=== PATIENT | female | born 1955 | race Caucasian/White ===

== ENCOUNTER 2025-05-16 10:39 | Emergency (ER) | payer MEDICARE, SELFPAY ==
[2025-05-16 10:44] VITALS: BP 141/82; PULSE 85; TEMP 36.4; O2SAT 95; BMI 32.9
--- NOTE | 2025-05-16 10:54 | XR_ITS ---
The [address] [address] Patient Name: ROSE AZAR MRN: [id number] date: 1955 Sex: F Assigned Patient Location: ER Current Patient Location: ED.MAIN Accession/Order Number: [id number] Exam Date: 05/16/2025 11:00 Report Date: 05/16/2025 11:32 At the request of: KIANA GRANT MD Procedure: XR elbow LT min 3V LEFT ELBOW - ray views CLINICAL HISTORY: Fall. Left elbow pain. COMPARISON: None FINDINGS: Mild posterior soft tissue swelling. Degenerative changes without acute bony process. XR/XR elbow LT min 3V IMPRESSION: DEGENERATIVE CHANGES INVOLVING THE LEFT ELBOW WITHOUT ACUTE BONY PROCESS. Impression dictated by: Brent Salas Jr., D.O. 05/16/2025 11:32 AM Dictation Location: [place] [address] Electronically authenticated by: [id number] Y Date: 05/16/2025 11:32
--- NOTE | 2025-05-16 10:54 | CT_ITS ---
The [address] [address] Patient Name: ROSE AZAR MRN: [facility]:[id number] date: 1955 Sex: F Assigned Patient Location: ER Current Patient Location: ED.MAIN Accession/Order Number: [id number] Exam Date: 05/16/2025 11:08 Report Date: 05/16/2025 11:31 At the request of: KIANA GRANT MD Procedure: CT head/brain wo con CT BRAIN WITHOUT CONTRAST: CLINICAL HISTORY: Head injury with fall. Headache. COMPARISON: None TECHNIQUE: Contiguous axial unenhanced images were obtained through the brain. This CT exam was performed using one or more following dose reduction techniques: Automated exposure control, adjustment of the mA and/or kV according to patient size, or use of iterative reconstruction technique. FINDINGS: There is no evidence of midline shift, intra or extra-axial fluid collection, hemorrhage or CT evidence of stroke. Hypodensity involving the parietal lobes bilaterally. Posterior fossa appears unremarkable. Visualized intraorbital contents demonstrate no acute findings. Visualized paranasal sinuses are clear. The surrounding soft tissues are normal. CT/CT head/brain wo con IMPRESSION: HYPODENSITIES INVOLVING THE PARIETAL LOBES BILATERALLY. FINDINGS COULD REPRESENT PRES. THIS CAN BE FURTHER EVALUATED BY MRI. NO BLEED.. Impression dictated by: Brent Salas Jr., D.O. 05/16/2025 11:31 AM Dictation Location: [place] [address] Electronically authenticated by: [id number] Y Date: 05/16/2025 11:31
--- NOTE | 2025-05-16 10:54 | ED.GENADUL1 ---
HPI HPI - General Adult General Chief complaint: Fall Stated complaint: FALL; HEAD INJURY, WHOLE BODY HURTS Time Seen by Provider: 05/16/25 10:43 Source: patient Mode of arrival: Wheelchair History of Present Illness HPI narrative: 6-year-old female presents for an injury to her head. At 630 this morning she missed a step and she fell and hit the left side of her head and her left elbow. She states her body twisted and her whole body hurts but these were the only 2 areas of injury. It has been more than 10 years since her last tetanus shot and this is being updated today. No vomiting or neck pain or complaints of chest pain or shortness of breath. She has been able to ambulate. Related Data Home Medications ?Medication ?Instructions ?Recorded ?Confirmed atorvastatin 40 mg tablet 40 mg PO DAILY 05/16/25 05/16/25 dulaglutide 1.5 mg/0.5 mL 1.5 mg subcut QWEEK 05/16/25 05/16/25 [facility] metformin 500 mg tablet 500 mg PO BID 05/16/25 05/16/25 sertraline 100 mg tablet 100 mg PO DAILY 05/16/25 05/16/25 sertraline 25 mg tablet 25 mg PO DAILY 05/16/25 05/16/25 Allergies Allergy/AdvReac Type Severity Reaction Status Date / Time acetaminophen (From Allergy Severe Unknown Verified 05/16/25 10:49 Tylenol-Codeine #3) carisoprodol (From Soma) Allergy Severe Unknown Verified 05/16/25 10:49 codeine (From Allergy Severe Unknown Verified 05/16/25 10:49 Tylenol-Codeine #3) morphine Allergy Severe Vomiting Verified 05/16/25 10:49 Review of Systems ROS Narrative A ten point review of systems is negative except as noted above. PFSH PFSH Social History Little interest or pleasure in doing things: not at all Feeling down, depressed, or hopeless: not at all Exam Narrative Exam Narrative: Nurses note and vital signs reviewed and patient is not hypoxic. General:The patient appears well and in no apparent distress.Patient is resting comfortably on cart. Skin:Warm, dry, no pallor noted.There is no rash noted. Head:Normocephalic, atraumatic; no hematoma or laceration noted. C-spine nontender Eye: Normal conjunctiva, no drainage Ears, Nose, Mouth, and Throat: oral mucosa is moist. Nares patent. Cardiovascular:Regular Rate and Rhythm Respiratory:Patient is in no distress, no accessory muscle use, lungs are clear to auscultation, no wheezing, rales or rhonchi. She has some tenderness in the right posterior rib region without any crepitus bruise or abrasion. Back:non-tender, including cervical, thoracic, and lumbar spines GI: Soft and nontender Musculoskeletal: Abrasion present in the left elbow which has full range of motion Neurological:A&O, normal speech Psychiatric:Cooperative Constitutional Vital Signs, click to edit/add: Last Vital Signs Temp 97.5 F L 05/16/25 10:44 Pulse 85 05/16/25 10:44 Resp 18 05/16/25 10:44 BP 141/82 05/16/25 10:44 Pulse Ox 95 05/16/25 10:44 O2 Del Method Room Air 05/16/25 10:44 Course Vital Signs Vital signs: Vital Signs Temperature 97.5 F L 05/16/25 10:44 Pulse Rate 85 05/16/25 10:44 Respiratory Rate 18 05/16/25 10:44 Blood Pressure 141/82 05/16/25 10:44 Pulse Oximetry 95 05/16/25 10:44 Oxygen Delivery Method Room Air 05/16/25 10:44 Temperature 97.5 F L 05/16/25 10:44 Pulse Rate 85 05/16/25 10:44 Respiratory Rate 18 05/16/25 10:44 Blood Pressure 141/82 05/16/25 10:44 Pulse Oximetry 95 05/16/25 10:44 Oxygen Delivery Method Room Air 05/16/25 10:44 Medical Decision Making MDM Narrative Medical decision making narrative: X-rays of chest and elbow are negative. CT brain shows no acute findings. The CT findings of possible PRES were discussed with the patient and she will follow-up with her PCP tetanus status was updated. Treatment diagnosis and follow-up were discussed with the patient. Differential Diagnosis Differential Diagnosis: Intracranial hemorrhage, head contusion, abrasion, fracture Imaging Data CT scan - head: Radiologist's impression: ITS Impressions Elbow X-Ray 05/16/25 10:54 IMPRESSION: DEGENERATIVE CHANGES INVOLVING THE LEFT ELBOW WITHOUT ACUTE BONY PROCESS. Impression dictated by: Brent Salas Jr., D.OLien 05/16/2025 11:32 AM Dictation Location: [facility] Electronically authenticated by: [id number] Y Date: 05/16/2025 11:[address] 05/16/25 10:54 IMPRESSION: HYPODENSITIES INVOLVING THE PARIETAL LOBES BILATERALLY. FINDINGS COULD REPRESENT PRES. THIS CAN BE FURTHER EVALUATED BY MRI. NO BLEED.. Impression dictated by: Brent Salas Jr., D.O. 05/16/2025 11:31 AM Dictation Location: [facility] Electronically authenticated by: [id number] Y Date: 05/16/2025 11:31 Chest X-Ray 05/16/25 10:59 IMPRESSION: NO ACUTE PROCESS. Impression dictated by: Brent Salas Jr., D.O. 05/16/2025 11:31 AM Dictation Location: [facility] Electronically authenticated by: [id number] Y Date: 05/16/2025 11:31 Discharge Plan Discharge Chief Complaint: Fall Clinical Impression: Fall, Abrasion of left elbow, Head injury Patient Disposition: Home, Self-Care Time of Disposition Decision: 11:51 Condition: Good Mode of Transportation: Private Vehicle Prescriptions / Home Meds: No Action atorvastatin 40 mg tablet 40 mg PO DAILY Trulicity 1.5 mg/0.5 mL pen injector 1.5 mg SUBCUT QWEEK metformin 500 mg tablet 500 mg PO BID sertraline 100 mg tablet 100 mg PO DAILY sertraline 25 mg tablet 25 mg PO DAILY Print Language: Polish Instructions: Head Injury (ED), Abrasion (ED), Fall Prevention (ED) Referrals: ZAK GARZA [Primary Care Provider, Internal Medicine] - 1 week
--- NOTE | 2025-05-16 10:59 | XR_ITS ---
The [address] [address] Patient Name: ROSE AZAR MRN: [id number] date: 1955 Sex: F Assigned Patient Location: ER Current Patient Location: ED.MAIN Accession/Order Number: [id number] Exam Date: 05/16/2025 11:00 Report Date: 05/16/2025 11:31 At the request of: KIANA GRANT MD Procedure: XR chest 1V Single view chest: CLINICAL HISTORY: fall COMPARISON: None FINDINGS: The heart is normal in size. The lungs are clear. The pulmonary vasculature is normal. Mediastinum and hilar regions are unremarkable. No pleural effusions are seen. Visualized bones are intact. XR/XR chest 1V IMPRESSION: NO ACUTE PROCESS. Impression dictated by: Brent Salas Jr., D.OLien 05/16/2025 11:31 AM Dictation Location: [place] [address] Electronically authenticated by: [id number] Y Date: 05/16/2025 11:31
--- OUTSIDE RECORDS SUMMARY | 2025-05-16 11:16 | XMS_ITS | Encounter Summary ---
Author Organization [facility] [employer] Sys [facility] Address [facility] [id number] [address] [place] [address] Care Team Providers Care Radio Station Manager Name Role Phone Sarina Cheney INTERNET WEBMASTER-PRODUCE ASSOCIATE Primary Care Provider + Encounter Details Date Type Department Care Team (Late st Contact Info) Description 06/02/2023 [facility] [address] [place] [address] Sarina Cheney, INTERNET WEBMASTER-PRODUCE ASSOCIATE [address] [place] [address] Social History Tobacco Use Types Packs/Day Years Used Date Smoking Tobacco: Never Smokeless Tobacco: Never Alcohol Use Standard Drinks/Week Comments Not Currently 0 (1 standard drink = 0.6 oz pur e alcohol) rare Overall Financial Resource Strain (CARDIA) Answe r Date Recorded How hard is it for you to pa y for the very basics like food, housing, medical care, and heating? Not hard at all 09/19/2022 PHQ-2 Answer Date Recorded Total Score 0 05/18/2023 PRAPARE - Transportation Answer Date Re corded In the past 12 months, has l ack of transportation kept you from medical appointments or from getting medications? No 09/01 In the past 12 months, has l ack of transportation kept you from meetings, work, or from getting things needed for daily living? No 09/19/2022 Housing Instability Answer Date Recorde d Are you worried or concerned that in the next two months you may not have stable housing that you own, rent or stay in as a part of a household? No 09/19/2022 Childcare Answer Date Recorded Childcare Unknown 01/08/2019 Employment Answer Date Recorded Employment Unknown 01/08/2019 Purpose - Life Answer Date Recorded Purpose and direction in life Unknown Comments No Sex and Gender Information Value Date Recorded Sex Assigned at Not on file Legal Sex Female 9:25 PM EDT Gender Identity Not on file Sexual Orientation Not on file documented as of this encounter Plan of Treatment Not on file documented as of this encounter Procedures Procedure Name Priority Date/Time Associated Diagnosis Comments DIET MESSAGE Routine 05/30/2023 2:03 PM EDT documented in this encounter Results * Diet message (05/30/2023 2:03 PM EDT) us Sarina LIZARRAGA NOURISHMENT ORDERABLES F inal Result Performing Organization Address City/State/[facility] Co de Phone Number MANUALLY TRANSCRIBED RESULTS documented in this encounter Visit Diagnoses Not on filedocumented in this encounter Additional Health Concerns Assessment Noted Time PHQ-9 Depression Total Score: 0 05/18/20 10:28 AM EDT documented as of this encounter Care Teams Radio Station Manager Relationship Specialty Start Date End Date Sarina Cheney APRN-CNP [address] [facility] [place] [address] PCP - General Internal Medicine 05/18/23 documented as of this encounter
--- OUTSIDE RECORDS SUMMARY | 2025-05-16 11:16 | XMS_ITS | Encounter Summary ---
Author Organization [facility] Address [facility] [place]-[id number] [address] [place] [address] Care Team Providers Care Oil Expeller Operator Name Role Phone Sarina Cheney DIRECTOR OF VIDEO ANALYTICS-HYDROBLASTER Primary Care Provider + Encounter Details Date Type Department Care Team (Late st Contact Info) Description 12/21/2022 Telephone [facility] Internal Medicine - Family Medicine [address] [place] [phone] Sarina Cheney, DIRECTOR OF VIDEO ANALYTICS-HYDROBLASTER [address] [facility] [place] [address] Social History Tobacco Use Types Packs/Day Years [...] PHQ-2 Answer Date Recorded Total Score 0 12/16/2022 PRAPARE - Transportation Answer Date Re corded [...] on file documented as of this encounter Miscellaneous Notes * Telephone Encounter - Yumiko Peter - 12/21/2022 10:43 AM EDT Patient called stated you said to call back if not feeling better for an antibiotic and she isnt. Ears are starting to hurt along with headache and lump feeling in her throat. Would like something called into her pharmacy. * Telephone Encounter - ELHAM Mensah - 12/21/2022 10:43 AM EDT This does not necessarily mean she needs antibiotic - does she have fever? Trouble breathing? Intense sinus pressure in her cheeks or head? None of the symptoms she listed are things requiring antibiotic therapy unless she has developed ear infection which I would need to check out in office because they are more rare in adults. * Telephone Encounter - Yumiko Peter - 12/21/2022 10:43 AM EDT Patient aware and did not want to set up an appointment at this time documented in this encounter Plan of Treatment Not on file documented as of this encounter Visit Diagnoses Not on filedocumented in this encounter Additional Health Concerns Assessment Noted Time PHQ-9 Depression Total Score: 0 12/17/19 23 9:10 AM EDT documented as of this encounter Care Teams Oil Expeller Operator Relationship Specialty Start Date End Date Sarina Cheney APRN-CNP [address] [place] [address] PCP - General Internal Medicine 05/18/23 documented as of this encounter
--- OUTSIDE RECORDS SUMMARY | 2025-05-16 11:16 | XMS_ITS | Encounter Summary ---
Author Organization [employer] Sys [facility] Address [id number] [address] [place] [address] Care Team Providers Care Rat Breeder Name Role Phone Sarina Cheney EXECUTIVE DIRECTOR-VAULT CUSTODIAN Primary Care Provider + Encounter Details Date Type Department Care Team (Late st Contact Info) Description 02/05/2024 [facility] - Family Medicine [address] [place] [phone] Yuan Shoemaker, [address] [place] [address] Social History Tobacco Use Types Packs/Day Years [...] 09/19/2022 PHQ-2 Answer Date Recorded Total Score 8 12/20/2023 PRAPARE - Transportation Answer Date Re corded [...] Employment Answer Date Recorded Employment Unknown 01/08/2019 Hunger Screening Answer Date Recorded Within the past 12 months we worried whether our food would run out before we got money to buy more. Sometimes True 024 Within the past 12 months th e food we bought just didn't last and we didn't have money to get more. Sometimes True 12/20/2023 Purpose - Life Answer Date Recorded Purpose [...] Assessment Noted Time PHQ-9 Depression Total Score: 8 12/20/19 24 10:41 AM EDT documented as of this encounter Care Teams Rat Breeder Relationship Specialty Start Date End Date Sarina Cheney, EXECUTIVE DIRECTOR-VAULT CUSTODIAN [address] [place] [address] PCP - General Internal Medicine 05/18/23 documented as of this encounter
--- OUTSIDE RECORDS SUMMARY | 2025-05-16 11:16 | XMS_ITS | Encounter Summary ---
Author Organization [facility] [employer] [facility] Address [facility] [place]-[id number] [address] [place] [address] Care Team Providers Care Roll Press Operator Name Role Phone Sarina Cheney FILLER FEEDER-TANDEM MILL OPERATOR Primary Care Provider + Encounter Details Date Type Department Care Team (Late st Contact Info) Description 03/30/2023 Orders Only [facility] Internal Medicine - Family Medicine [address] [place] [address] Sarina Cheney, FILLER FEEDER-TANDEM MILL OPERATOR [address] [place] [address] Social History Tobacco Use Types Packs/Day Years [...] 09/19/2022 PHQ-2 Answer Date Recorded Total Score 18 03/09/2023 PRAPARE - Transportation Answer Date Re corded [...] Assessment Noted Time PHQ-9 Depression Total Score: 18 023 9:24 AM EDT documented as of this encounter Care Teams Roll Press Operator Relationship Specialty Start Date End Date Sarina Cheney APRN-TANDEM MILL OPERATOR [address] [place] [address] PCP - General Internal Medicine 05/18/23 documented as of this encounter
--- OUTSIDE RECORDS SUMMARY | 2025-05-16 11:16 | XMS_ITS | Encounter Summary ---
Author Organization [employer] [facility] [employer] Address [facility] [place]-[id number] [address] [place] [address] Care Team Providers Care Neurology Nurse Name Role Phone Sarina Cheney SPECIAL EDUCATION INSTRUCTOR-INHALATION THERAPY AIDE Primary Care Provider + Reason for Visit * Reason Comments Med Refill Encounter Details Date Type Department Care Team (Late st Contact Info) Description 06/08/2022 Refill [facility] Internal Medicine - Family Medicine [address] [place] [address] Yuan Shoemaker, [address] [place] [id number] Type 2 diabetes mellitus without complication, without long-term current use of insulin ([facility]) (Primary Dx) Social History Tobacco Use Types Packs/Day Years Used Date Smoking Tobacco: Never Smokeless Tobacco: Never Alcohol Use Standard Drinks/Week Comments Not Currently 0 (1 standard drink = 0.6 oz pur e alcohol) rare Childcare Answer Date Recorded Childcare Unknown 01/08/2019 [...] documented as of this encounter Visit Diagnoses Diagnosis Type 2 diabetes mellitus without complication, without long-term current use of insulin ([facility])- Primary documented in this encounter Care Teams Neurology Nurse Relationship Specialty Start Date End Date Sarina Cheney APRN-INHALATION THERAPY AIDE [address] [place] [address] PCP - General Internal Medicine 05/18/23 documented as of this encounter
--- OUTSIDE RECORDS SUMMARY | 2025-05-16 11:17 | XMS_ITS | Encounter Summary ---
Author Organization [facility] Address [address] [place] [address] Care Team Providers Care Sign Language Interpreter Name Role Phone Yuan Shoemaker MD Primary Care Provider [phone] Encounter Details Date Type Department Care Team (Late st Contact Info) Description 02/14/2024 Abstract [facility] [address] [place] [phone] Goyo Jones, DPM [address] [place], [place] [phone] Social History Tobacco Use Types Packs/Day Years Used Date Smoking Tobacco: Never Smokeless Tobacco: Never Alcohol Use Standard Drinks/Week Comments Not Currently 0 (1 standard drink = 0.6 oz pur e alcohol) Comments Unknown Sex and Gender Information Value Date Recorded Sex Assigned at Not on file Legal Sex Female 8:14 PM EDT Gender Identity Not on file Sexual Orientation Not on file documented as of this encounter Plan of Treatment Not on file documented as of this encounter Visit Diagnoses Not on filedocumented in this encounter Care Teams Sign Language Interpreter Relationship Specialty Start Date End Date Yuan Shoemaker MD PCP - General Internal Medicine 01/29/24 documented as of this encounter
--- OUTSIDE RECORDS SUMMARY | 2025-05-16 11:17 | XMS_ITS | Clinical Summary ---
Author Organization [facility] Address [address] [place] [address] Care Team Providers Care Car Repossessor Name Role Phone Yuan Shoemaker MD Primary Care Provider [phone] Allergies Active Allergy Reactions Criticality Noted Date Comments Carisoprodol Shortness of breath High 06/18/2018 Other Reaction(s): Unknown Codeine Medium 10/31/2020 Other Reaction(s): Confusion Morphine Nausea Only 11/25/2020 Medications metFORMIN, OSM, (Fortamet) 500 MG 24 hr tablet Take 500 mg by mouth in the morning and 500 mg in the evening. Take with meals. Do not crush, chew, or split.. Active atorvastatin (Lipitor) 10 MG tablet Take 10 mg by mouth Daily Active albuterol HFA 90 mcg/act inhaler Inhale 2 puffs every 6 (six) hours if needed 3 Active alendronate (Fosamax) 35 MG tablet Take 35 mg by mouth once a week 4 Active aspirin 81 MG EC tablet Take 81 mg by mouth in the morning. 4 Active Trulicity 1.5 MG/0.5ML solution pen-injector Inject under the skin 4 Active Glucosamine HCl 1500 MG tablet 1 tablet Orally Once a day Active ibuprofen 600 MG tablet Take 600 mg by mouth every 6 (six) hours if needed 4 Active LORazepam (Ativan) 0.5 MG tablet Take 0.5 mg by mouth in the morning and 0.5 mg in the evening. Active nystatin (Mycostatin) cream Apply 1 Application topically in the morning and 1 Application in the evening. Active sertraline (Zoloft) 100 MG tablet Take 1 tablet by mouth in the morning. Active clobetasol propionate (Temovate) 0.05 % emollient cream Apply topically 2 (two) times a day Active fluticasone (Flonase) 50 MCG/ACT nasal spray Administer 1 spray into each nostril Daily Shake gently. Before first use, prime pump. After use, clean tip and replace cap. Active Spacer/Aero-Hol ding Chambers (AeroChamber MV) inhaler by Other route Use as instructed Active loratadine (Claritin) 10 MG tablet Take by mouth Active Bioflavonoid Products (BIOFLEX PO) Take by mouth Act asif Active Problems No known active problems Encounters Date Type Department Care Team Description 02/13/2025 10:15 AM EDT Office Visit [facility] [address] [place] [address] Jamel Chaudhry, CARRIE De Quervain's tenosynovitis (Primary Dx); Left wrist pain 02/13/2025 Bamboo flowsheet [facility] [address] [place] [address] Jamel Chaudhry, EXPORT CLERK 02/13/2025 Travel from Last 3 Months Immunizations Immunization Administration Dates Next Due Influenza Whole 05/18/2009 Influenza, High-dose Seasona l, Quadrivalent, Preservative Free 05/03/2023,10/06/2022,11/08/2021 Influenza, injectable, MDCK, quadrivalent 2018 Influenza, injectable, quadrivalent 04/27/2020 Influenza, seasonal, injecta ble, preservative free 04/03/2015 Pneumococcal Conjugate PCV 13 04/27/2020, 015 Pneumococcal Polysaccharide PPSV23 05/05/2022 Tdap 04/03/2015 Tetanus toxoid, adsorbed 11/27/2009 Zoster, Recombinant 10/06/2022,05/05/2022 Family History Medical History Relation Name Comments Cancer Brother Coronary artery disease Brother Graves' disease Brother Heart disease Brother Stroke Brother COPD Father Cancer Father Hypertension Father Cancer Mother Coronary artery disease Mother Heart disease Mother Relation Name Status Comments Brother Father Mother Social History Tobacco Use Types Packs/Day Years Used Date Smoking Tobacco: Never Smokeless Tobacco: Never Tobacco Cessation:Counseling Given: No Alcohol Use Standard Drinks/Week Comments Not Currently 0 (1 standard drink = 0.6 oz pur e alcohol) Comments Unknown Sex and Gender Information Value Date Recorded Sex Assigned at Not on file Legal Sex Female 8:14 PM EDT Gender Identity Not on file Sexual Orientation Not on file Last Filed Vital Signs Vital Sign Reading Time Taken Comments Blood Pressure - - Pulse - - Temperature - - Respiratory Rate - - Oxygen Saturation - - Inhaled Oxygen Concentration - - Weight 81.6 kg (180 lb) 01/27/2025 1:03 PM EDT Height 157.5 cm (5' 2 ) 01/27/2025 1:03 PM EDT Body Mass Index 32.92 01/27/2025 1:03 PM EDT Plan of Treatment Health Maintenance Due Date Last Done Comments CT Colonography 1955 Colonoscopy 1955 Colorectal Cancer Screening 1955 FIT-DNA 1955 FIT 1955 FOBT 1955 Sigmoidoscopy 1955 Mammogram 10/21/2023 10/20/2022, 09/28, 01/22/2020 Influenza Vaccine (#1) 2025 , 10/06/2022, 11/08/2021, Additional history exists Pneumococcal Vaccine: 65+ Years Completed 05/05/2022, 04/27/2020, 04/03/2015 Insurance MEDICARE ADVANTAGE Care Teams Car Repossessor Relationship Specialty Start Date End Date Yuan Shoemaker MD PCP - General Internal Medicine 01/29/24
--- OUTSIDE RECORDS SUMMARY | 2025-05-16 11:17 | XMS_ITS | Encounter Summary ---
Author Organization [facility] Address [address] [place] [address] Care Team Providers Care Partner Manager Name Role Phone Yuan Shoemaker MD Primary Care Provider [phone] Encounter Details Date Type Department Care Team (Late st Contact Info) Description 02/20/2024 Abstract [facility] [address] [place] [phone] Goyo Jones, DPM [address] [place], [place] [id number] Social History Tobacco Use Types Packs/Day Years [...] on filedocumented in this encounter Care Teams Partner Manager Relationship Specialty Start Date End Date Yuan Shoemaker MD PCP - General Internal Medicine 01/29/24 documented as of this encounter
--- OUTSIDE RECORDS SUMMARY | 2025-05-16 11:17 | XMS_ITS | Clinical Summary ---
Author Organization [employer] Address [facility] [id number] [address] [place] [address] Care Team Providers Care Screen Maker Name Role Phone Sarina Cheney SCALE TANK OPERATOR-REHAB DIRECTOR Primary Care Provider + Allergies Active Allergy Reactions Criticality Noted Date Comments Codeine Confusion Medium 10/31/2020 Famotidine Dizziness 12/26/2024 Morphine (Pf) Nausea 11/25/2020 Carisoprodol Shortness Of Breath High 06/18/2018 Medications rutin/hesp/biof lav/C/ (BIOFLEX ORAL) Take by mouth. Active glucosamine HCl 1,500 mg tablet Acti ve loratadine (CLARITIN) 10 mg tablet Take 1 tablet (10 mg total) by mouth daily as needed for allergies. 30 tablet 2 3 Active fluticasone propionate (FLONASE) 50 mcg/actuation nasal spray Administer 1 spray into each nostril in the morning. 9.9 mL 1 3 Active albuterol (PROVENTIL HFA;VENTOLIN HFA) 90 mcg/actuation inhalerIndicati ons:Environment al allergies,React asif airways dysfunction syndrome (CMS-HCC) Inhale 2 puffs every 6 (six) hours as needed for wheezing. 18 g 1 3 Active inhalational spacing device (AEROCHAMBER MV) spacer 1 each by miscellaneous route every 6 (six) hours as needed (Use with albuterol PRN). 1 each 3 Active ibuprofen (MOTRIN) 600 mg tablet Take 1 tablet (600 mg total) by mouth every 6 (six) hours as needed for pain. 30 tablet 4 Active Additional Information Patient not taking.Reported on 12/26/2024 nystatin (MYCOSTATIN) cream Apply 1 Application topically in the morning and 1 Application before bedtime. 30 g 1 4 Active aspirin 81 mg TAKE 1 TABLET BY MOUTH EVERY MORNING 90 tablet 1 5 Active diclofenac sodium (VOLTAREN) 1 % gel Apply 2 g topically in the morning and 2 g at noon and 2 g in the evening and 2 g before bedtime. 100 g 5 Active acetaminophen (TYLENOL EXTRA STRENGTH) 500 mg tablet Take by mouth every 4 (four) hours. prn Active nunqeskx-onuk-P U-kmjnacc-ffev (ONE DAILY WOMEN'S) 18 mg iron-400 mcg-450 mg Ca tablet take 1 tab po qd Act asif triamcinolone (KENALOG) 0.1 % cream Apply 1 Application topically in the morning and 1 Application before bedtime. 30 g 5 Active metFORMIN (GLUCOPHAGE) 500 mg tablet TAKE 1 TABLET BY MOUTH EVERY MORNING AND TAKE ONE TABLET BY MOUTH EVERY EVENING WITH A MEAL 180 tablet 1 5 Active TRULICITY 1.5 mg/0.5 mL pen injector 5 Active ofloxacin (OCUFLOX) 0.3 % ophthalmic solution 5 Active prednisoLONE acetate (PRED FORTE) 1 % ophthalmic suspension 5 Active sertraline (ZOLOFT) 100 mg tablet Take 1 tablet (100 mg total) by mouth in the morning. 90 tablet 1 5 Active sertraline (ZOLOFT) 25 mg tablet Take 1 tablet (25 mg total) by mouth in the morning. Add 25mg. Total daily dose is 125mg. 90 tablet 1 5 Active atorvastatin (LIPITOR) 40 mg tablet TAKE 1 TABLET BY MOUTH DAILY 90 tablet 1 5 Active alendronate (FOSAMAX) 35 mg tablet TAKE 1 TABLET BY MOUTH ONCE WEEKLY ON AN EMPTY STOMACH BEFORE BREAKFAST. REMAIN UPRIGHT FOR 30 MINUTES AND TAKE WITH 8 OUNCES OF WATER 12 tablet 2 5 Active Active Problems Problem Noted Date Diagnosed Date Combined forms of age-related cataract of right eye 02/16/2025 Moderate episode of recurrent major depressive d isorder 10/24/2024 Diabetic polyneuropathy asso ciated with type 2 diabetes mellitus 10/24/2024 History of renal calculi 04/11/2022 Hyperlipidemia 04/11/2022 Type 2 diabetes mellitus 04/11/2022 Contracture, left ankle 04/11/2022 Polyp of ascending colon 11/25/2020 Diverticulosis large intesti ne w/o perforation or abscess w/o bleeding 11/25/2020 Diverticulosis of large intestine 11/25/2020 Colon cancer screening 10/31/2020 Sleep apnea 07/31/2010 Resolved Problems Problem Noted Date Diagnosed Date Resolved Date Vitreous hemorrhage of left eye 06/28/2024 10/24/2024 Encounters Date Type Department Care Team Description 03/27/2025 Refill [facility] [address] [place] [address] Billy Rai DO 03/23/2025 Refill [facility] [address] [place] [address] Sarina Cheney, SCALE TANK OPERATOR-REHAB DIRECTOR 03/11/2025 Telephone [facility] [address] [place] [address] Marita Rankin CMA Diabetes Mellitus 03/03/2025 Orders Only [facility] [address] [place] [address] Ref Prov, Not In System 02/28/2025 Orders Only [facility] [address] [place] [address] Sarina Cheney, SCALE TANK OPERATOR-REHAB DIRECTOR 02/25/2025 Refill [facility] [address] [place] [address] Jahaira Perez CMA 02/17/2025 10:08 AM EDT Anesthesia Event [facility] [address] [place] [address] Atif Villanueva MD Reynolds, Vern D, DO 02/17/2025 9:30 AM EDT - 02/17/2025 10:15 AM EDT Surgery [facility] [address] [place] [address] Shay Salas DO EXTRACTION CATARACT INTRAOCULAR LENS [30211 (CPT )] 02/17/2025 7:22 AM EDT - 02/17/2025 10:59 AM EDT Hospital Encounter [facility] [address] [place] [address] Shay Salas DO Discharge Disposition: Home 02/17/2025 Travel from Last 3 Months Immunizations Immunization Administration Dates Next Due Influenza (IM) Preservative Free 04/03/2015 Influenza Whole 05/18/2009 Influenza, High-dose, Quadrivalent 05/03,10/06/2022,11/08/2021,04/27 Influenza, Injectable, MDCK, Quadrivalent 06/03/2019 Influenza, Injectable, Quadrivalent 04/27/2020 Pneumococcal Conjugate 13-Valent 04/27/2020,10/2014 Pneumococcal Polysaccharide 05/05/2022 Tdap 04/03/2015 Tetanus 11/27/2009 Zoster Vaccine Recombinant 10/06/2022,05/05/2022 Family History Medical History Relation Name Comments Cancer Brother 1 Bladder Coronary artery disease Brother 1 Cancer Brother 2 Prostate Coronary artery disease Brother 2 Graves' disease Brother 2 Heart disease Brother 3 Stroke Brother 3 COPD Father Cancer Father voice box Heart disease Father Hypertension Father Cancer Mother lung Coronary artery disease Mother Heart disease Mother Angina Sister Breast cancer Neg Hx Relation Name Status Comments Brother 1 Brother 2 Brother 3 Alive Father Mother Sister Social History Tobacco Use Types Packs/Day Years Used Date Smoking Tobacco: Never Smokeless Tobacco: Never Tobacco Cessation:Counseling Given: Not Answered Alcohol Use Standard Drinks/Week Comments Not Currently 0 (1 standard drink = 0.6 oz pur e alcohol) rare Overall Financial Resource Strain (CARDIA) Answe r Date Recorded How hard is it for you to pa y for the very basics like food, housing, medical care, and heating? Not hard at all 09/19/2022 PHQ-2 Answer Date Recorded Total Score 7 12/26/2024 PRAPARE - Transportation Answer Date Re corded [...] got money to buy more. Sometimes True 025 Within the past 12 months th e food we bought just didn't last and we didn't have money to get more. Sometimes True 12/26/2024 Purpose - Life Answer Date Recorded Purpose and direction in life Unknown Comments No Sex and Gender Information Value Date Recorded Sex Assigned at Not on file Legal Sex Female 9:25 PM EDT Gender Identity Not on file Sexual Orientation Not on file Last Filed Vital Signs Vital Sign Reading Time Taken Comments Blood Pressure 131/81 02/17/2025 10:53 AM EDT Pulse 71 02/17/2025 10:53 AM EDT Temperature 36.2 C (97.1 F) 02/17/2025 10:53 AM EDT Respiratory Rate 18 02/17/2025 10:53 AM EDT Oxygen Saturation 99% 02/17/2025 10:53 AM EDT Inhaled Oxygen Concentration - - Weight 81.6 kg (180 lb) 02/17/2025 7:40 AM EDT Height 157.5 cm (5' 2 ) 02/17/2025 7:40 AM EDT Body Mass Index 32.92 02/17/2025 7:40 AM EDT Plan of Treatment Health Maintenance Due Date Last Done Comments Colonoscopy 1954 Adult BMI Follow Up Plan 1972 Mammogram 10/21/2023 10/20/2022, 09/28, 01/22/2020 Diabetic Foot Exam 01/28/2025 01/29/2024, 0 08/31/2023, 02/16/2023, Additional history exists Influenza Vaccine 03/31/2025 05/03/2023, , 11/08/2021, Additional history exists DTaP,Tdap and Td Vaccines (2 - Td or Tdap) 04/03/2025 04/03/2015 Diabetic Ophthalmology Exam 12/07/2025 05, 06/19/2024, 08/12/2023 Depression Screening 12/26/2025 12/26/2024 Fall Risk Screening 12/26/2025 12/26/2024 Medicare Annual Wellness Visit 12/26/2025 0 12/26/2024, 02/23/2024, 02/16/2023 Adult BMI Screening 02/17/2026 02/17/2025 Tobacco Screening 02/17/2026 02/17/2025 Statin Use: Diabetic 03/26/2026 03/26/2025 COVID-19 Vaccine Discontinued 07/28/2021, 07/2020, 10/01/2020 Zoster (Shingles) Vaccine Completed 10/06/2022, 12/2021 Medical Devices Implanted Type Area Industrial Engineering Intern Device Identifier Shelf Expiration Date Model / Serial / Lot Clareon Uv Iol +19.5d Implanted:Qty: 1 on 02/17/2025 by Shay Salas DO at [facility] Other Implant [employer] 06/11/2027 [id number] / [id number] / N/A Procedures Procedure Name Priority Date/Time Associated Diagnosis Comments ND REMV CATARACT EXTRACAP,INSERT LENS 02/17/2025 10:07 AM EDT cataract right eye DIABETES EYE EXAM Routine 12/07/2024 11:55 AM EDT MAMM SCREENING BILATERAL W CAD Routine 10/20/2022 2:20 PM EDT Encounter for screening mammogram for malignant neoplasm of breast from Last 3 Months or Most Recently Relevant to Health Maintenance Results * DIABETES EYE EXAM (12/07/2024 11:55 AM EDT) us Not In System Ref Prov HEALTH MAINTENANCE Final Result MANUALLY TRANSCRIBED RESULTS * Mammography screening bilateral with CAD (10/20/2022 2:20 PM EDT) Anatomical Region Laterality Modality Breast Bilateral Mammography 10/24/2022 9:52 AM EDT Narrative 10/24/2022 9:56 AM EDT MAMM SCREENING BILATERAL W CAD WITH TOMOSYNTHESIS HISTORY: Screening. Encounter for screening mammogram for malignant neoplasm of breast COMPARISON: 10/13/2021 FINDINGS: There are scattered areas of fibroglandular density. Negative for malignancy. Computer-aided detection was used in the interpretation of this examination. IMPRESSION: BIRADS 1 - Negative. Normal interval follow-up in 12 months. OVERALL ASSESSMENT- NEGATIVE. A letter of notification will be sent to the patient regarding the results. Finalized by Andrea Carl MD on 10/24/2022 9:56 AM 1 b MAMM 1 YR Procedure Note Andrea Carl MD - 10/24/2022 MAMM SCREENING BILATERAL W CAD WITH TOMOSYNTHESIS HISTORY: Screening. Encounter for screening mammogram for malignantneoplasm of breast COMPARISON: 10/13/2021 FINDINGS: There are scattered areas of fibroglandular density. Negativefor malignancy. Computer-aided detection was used in the interpretation of thisexamination. IMPRESSION: BIRADS 1 - Negative. Normal interval follow-up in 12 months. OVERALL ASSESSMENT- NEGATIVE. A letter of notification will be sent to the patient regarding theresults. Finalized by Andrea Carl MD on 10/24/2022 9:56 AM 1 b MAMM 1 YR us Yuan Shoemaker DO IMG MAMMOGRAPHY ORDERABLES Final Result from Last 3 Months or Most Recently Relevant to Health Maintenance Insurance [employer] WORKERS COMPENSATION [employer] Care Teams Screen Maker Relationship Specialty Start Date End Date Sarina Cheney APRN-REHAB DIRECTOR [address] [place] [address] PCP - General Internal Medicine 05/18/23
--- OUTSIDE RECORDS SUMMARY | 2025-05-16 11:17 | XMS_ITS | Encounter Summary ---
Author Organization [facility] [employer] Address [id number] [address] [place] [address] Care Team Providers Care Ui Developer With Angular Js Name Role Phone Sarina Cheney RAIL SWITCHMAN-ON AIR TALENT Primary Care Provider + Encounter Details Date Type Department Care Team (Late st Contact Info) Description 03/03/2025 Orders Only [facility] Internal [facility] - Family Medicine [address] [place] [address] Ref Prov, [place] [address] Social History Tobacco Use Types Packs/Day Years [...] Procedure Name Priority Date/Time Associated Diagnosis Comments DIABETES EYE EXAM Routine 12/07/2024 11:55 AM EDT documented in this encounter Results * HM DIABETES EYE EXAM (12/07/2024 11:55 AM EDT) us Not In System Ref Prov HEALTH MAINTENANCE Final Result MANUALLY TRANSCRIBED RESULTS documented in this encounter Visit Diagnoses Not on filedocumented in this encounter Additional Health Concerns Assessment Noted Time PHQ-9 Depression Total Score: 7 12/27/19 25 10:07 AM EDT documented as of this encounter Care Teams Ui Developer With Angular Js Relationship Specialty Start Date End Date Sarina Cheney APRN-ON AIR TALENT [address] [place] [address] PCP - General Internal Medicine 05/18/23 documented as of this encounter
--- OUTSIDE RECORDS SUMMARY | 2025-05-16 11:18 | XMS_ITS | Encounter Summary ---
Author Organization [facility] [employer] Address [facility] [id number] [address] [place] [address] Care Team Providers Care Business Office Specialist Name Role Phone Sarina Cheney WASTE HAND-CAST IRON DRAIN PIPE LAYER Primary Care Provider + Encounter Details Date Type Department Care Team (Late st Contact Info) Description 08/04/2023 [facility] [address] [place] [phone] External, Scanning Provider Social History Tobacco Use Types Packs/Day Years [...] before we got money to buy more. Never True 06/09/2023 Within the past 12 months th e food we bought just didn't last and we didn't have money to get more. Never True 06/09/2023 Purpose - Life Answer Date Recorded Purpose [...] documented as of this encounter Care Teams Business Office Specialist Relationship Specialty Start Date End Date Sarina Cheney, WASTE HAND-CAST IRON DRAIN PIPE LAYER [address] [place], [place] [address] [place] [address] PCP - General Internal Medicine 05/18/23 documented as of this encounter
--- OUTSIDE RECORDS SUMMARY | 2025-05-16 11:18 | XMS_ITS | Encounter Summary ---
Author Organization [facility] [employer] Address [id number] [address] [place] [address] Care Team Providers Care Early Education Teacher Name Role Phone Sarina Cheney MANAGER VOICE-PATENT DRAFTER Primary Care Provider + Encounter Details Date Type Department Care Team (Late st Contact Info) Description 08/14/2023 [facility] [address] [place] [address] External, Scanning Provider Social History Tobacco Use [...] documented as of this encounter Care Teams Early Education Teacher Relationship Specialty Start Date End Date Sarina Cheney, MANAGER VOICE-PATENT DRAFTER [address] [place], [place] [address] [place] [address] PCP - General Internal Medicine 05/18/23 documented as of this encounter
--- OUTSIDE RECORDS SUMMARY | 2025-05-16 11:18 | XMS_ITS | Encounter Summary ---
Author Organization [employer] Address [id number] [address] [place] [address] Care Team Providers Care Receiving Teller Name Role Phone Sarina Cheney ROOM MAID-UNIVERSAL WORKER ASSISTED LIVING Primary Care Provider + Encounter Details Date Type Department Care Team (Late st Contact Info) Description 11/26/2024 [facility] [address] [place] [phone] Dewey, Elyssa, PUBLIC FINANCE SPECIALIST Social History Tobacco Use Types Packs/Day Years [...] 09/19/2022 PHQ-2 Answer Date Recorded Total Score 13 11/21/2024 PRAPARE - Transportation Answer Date Re corded [...] got money to buy more. Never True 11/21/2024 Within the past 12 months th e food we bought just didn't last and we didn't have money to get more. Never True 11/21/2024 Purpose - Life Answer Date Recorded Purpose and direction in life Unknown Comments No Sex and Gender Information Value Date Recorded Sex Assigned at Not on file Legal Sex Female 9:25 PM EDT Gender Identity Not on file Sexual Orientation Not on file documented as of this encounter Miscellaneous Notes * Telephone Encounter - Elyssa Palomo CMA - 11/26/2024 10:35 AM EDT Pt called requesting her x-ray results Of her hand * Telephone Encounter - LEHAM Mensah - 11/26/2024 10:35 AM EDT The radiologist has not signed results to system yet. documented in this encounter Plan of Treatment Not on file documented as of this encounter Visit Diagnoses Not on filedocumented in this encounter Additional Health Concerns Assessment Noted Time PHQ-9 Depression Total Score: 13 025 11:50 AM EDT documented as of this encounter Care Teams Receiving Teller Relationship Specialty Start Date End Date Sarina Cheney APRN-CNP [address] [place] [address] PCP - General Internal Medicine 05/18/23 documented as of this encounter
--- OUTSIDE RECORDS SUMMARY | 2025-05-16 11:18 | XMS_ITS | Encounter Summary ---
Author Organization [employer] Address [id number] [address] [place] [address] Care Team Providers Care Tearoom Host/Hostess Name Role Phone Sarina Cheney ENVIRONMENTAL MANAGEMENT SPECIALIST-GUARD LIEUTENANT Primary Care Provider + Encounter Details Date Type Department Care Team (Late st Contact Info) Description 10/04/[address] [facility] [address] [place] [address] Jahaira Perez CMA Post-menopausal Social History Tobacco Use Types Packs/Day Years [...] PHQ-2 Answer Date Recorded Total Score 18 08/31/2023 PRAPARE - Transportation Answer Date Re corded [...] got money to buy more. Never True 08/31/2023 Within the past 12 months th e food we bought just didn't last and we didn't have money to get more. Never True 08/31/2023 Purpose - Life Answer Date Recorded Purpose [...] Procedure Name Priority Date/Time Associated Diagnosis Comments DEXA SCAN CENTRAL SKELETAL Routine 10/04/2023 11:35 AM EST Post-menopausal documented in this encounter Results * Dexa scan central skeletal (10/04/2023 11:35 AM EST) Anatomical Region Laterality Modality N/A Radiographic Mariana ging us Billy Rai DO IMG DXA ORDERABLES Final Res ult documented in this encounter Visit Diagnoses Diagnosis Post-menopausal Asymptomatic postmenopausal status (age-related) (natural) documented in this encounter Additional Health Concerns Assessment Noted Time PHQ-9 Depression Total Score: 18 024 9:39 AM EST documented as of this encounter Care Teams Tearoom Host/Hostess Relationship Specialty Start Date End Date Sarina Cheney, ENVIRONMENTAL MANAGEMENT SPECIALIST-GUARD LIEUTENANT [address] [place] [address] PCP - General Internal Medicine 05/18/23 documented as of this encounter
--- OUTSIDE RECORDS SUMMARY | 2025-05-16 11:18 | XMS_ITS | Encounter Summary ---
Author Organization [employer] Address [facility] [id number] [address] [place] [address] Care Team Providers Care Sales Agent Fire Insurance Name Role Phone Sarina Cheney SHEET HEATER-COMMUNITY SUPPORT WORKER Primary Care Provider + Encounter Details Date Type Department Care Team (Late st Contact Info) Description 05/15/20[facility] [address] [place] [phone] Amber Barragan CMA Social History Tobacco Use Types Packs/Day Years [...] 09/19/2022 PHQ-2 Answer Date Recorded Total Score 12 02/23/2024 PRAPARE - Transportation Answer Date Re corded [...] got money to buy more. Never True 02/23/2024 Within the past 12 months th e food we bought just didn't last and we didn't have money to get more. Never True 02/23/2024 Purpose - Life Answer Date Recorded Purpose and direction in life Unknown Comments No Sex and Gender Information Value Date Recorded Sex Assigned at Not on file Legal Sex Female 9:25 PM EDT Gender Identity Not on file Sexual Orientation Not on file documented as of this encounter Miscellaneous Notes * Telephone Encounter - Amber Barragan CMA - 05/15/2024 3:19 PM EDT Pt would like her Zoloft increased just a little bit. Please. Her daughter just got diagnosed with ALS and her Brother in law just .She Is feeling a little overwhelmed right now. Pharmacy is listed and correct. * Telephone Encounter - ELHMA Mensah - 05/15/2024 3:19 PM EDT Tell her I am so sorry. She is at the high dose already -100mg. Would she like to come in to discuss add- on medications? Also let her know I can add counseling referral if she wishes. This can be a telehealth if pt wishes * Telephone Encounter - Amber Barragan CMA - 05/15/2024 3:19 PM EDT I called pt and she would like a visit with you to add on medications. She just is busy with the burial services and such. She will call us when she is ready. documented in this encounter Plan of Treatment Not on file documented as of this encounter Visit Diagnoses Not on filedocumented in this encounter Additional Health Concerns Assessment Noted Time PHQ-9 Depression Total Score: 12 024 10:15 AM EDT documented as of this encounter Care Teams Sales Agent Fire Insurance Relationship Specialty Start Date End Date Sarina Cheney, SHEET HEATER-COMMUNITY SUPPORT WORKER [address] [place] [address] PCP - General Internal Medicine 05/18/23 documented as of this encounter
--- OUTSIDE RECORDS SUMMARY | 2025-05-16 11:18 | XMS_ITS | Encounter Summary ---
Author Organization [facility] [facility] Address [facility] [id number] [address] [place] [address] Care Team Providers Care Xerox Machine Operator Name Role Phone Sarina Cheney REGISTERED MASSAGE THERAPIST-SPECIALIZED DEVELOPER Primary Care Provider + Encounter Details Date Type Department Care Team ([facility] st Contact Info) Description 06/24/2024 Orders Only [facility] Internal Medicine - Family Medicine [address] [place] [address] Ref Prov, [place] [address] Social History Tobacco Use Types Packs/Day Years [...] got money to buy more. Never True 06/01/2024 Within the past 12 months th e food we bought just didn't last and we didn't have money to get more. Never True 06/01/2024 Purpose - Life Answer Date Recorded Purpose [...] Associated Diagnosis Comments DIABETES EYE EXAM Routine 06/19/2024 12:11 PM EST documented in this encounter Results * DIABETES EYE EXAM (06/19/2024 12:11 PM EST) us Not In System Ref Prov HEALTH MAINTENANCE Final Result MANUALLY TRANSCRIBED RESULTS documented in this encounter Visit Diagnoses Not on filedocumented in this encounter Additional Health Concerns Assessment Noted Time PHQ-9 Depression Total Score: 12 024 10:15 AM EDT documented as of this encounter Care Teams Xerox Machine Operator Relationship Specialty Start Date End Date Sarina Cheney APRN-SPECIALIZED DEVELOPER [address] [place] [address] PCP - General Internal Medicine 05/18/23 documented as of this encounter
[2025-05-16] MEDS: DIPHTH,PERTUSS(ACELL),TET VAC 0.5 ML SYRINGE IM (11:24)
[2025-05-16] MEDS: IBUPROFEN 400 MG TABLET 800 MG PO (12:26)
[2025-05-16 12:28] VITALS: BP 128/68; PULSE 77; O2SAT 98
== END 2025-05-16 12:29 | disposition home or self-care (01) ==
PROVIDERS: Emergency Provider Emergency Medicine; PCP Internal Medicine
DX: S09.90XA Unspecified injury of head, initial encounter (principal); S50.312A Abrasion of left elbow, initial encounter; W10.8XXA Fall (on) (from) other stairs and steps, initial encounter; Z23 Encounter for immunization
CPT/HCPCS: 70450; 71045; 73080; 90471; 90715; 99284